=== PATIENT | male | born 1965 | race Caucasian/White ===

== ENCOUNTER 2019-01-01 00:28 | Emergency (ER) | payer OTHER ==
[2019-01-01] MEDS ORDERED: ONDANSETRON HCL IV 4 MG/2 ML VIAL IVP ONE (00:32)
[2019-01-01] MEDS ORDERED: HYDROMORPHONE HCL 2 MG/ML VIAL IVP ONE (00:32)
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
[2019-01-01 00:41] LABS: HEMATOCRIT 42.2 % (42.0-52.0); HEMOGLOBIN 13.5 gm/dl (14.0-18.0); MEAN CELL VOLUME 98.4 fl (81-97); PLATELET COUNT 317 K/uL (130-400); RED BLOOD COUNT 4.29 M/uL (4.40-5.70); RED CELL DISTRIBUTION WIDTH 14.7 % (11.5-14.5)
[2019-01-01 00:43] LABS: MEAN CORPUSCULAR HEMOGLOBIN 31.4 pg (27-33); WHITE BLOOD COUNT W/O DIFF 20.3 K/uL (4.2-12.2)
[2019-01-01] MEDS ORDERED: 0.9 % SODIUM CHLORIDE 1000ML 1,000 ML IV SCH (00:45)
[2019-01-01 00:50] LABS: BLOOD UREA NITROGEN 16 mg/dL (6-20); CREATININE 1.1 mg/dL (0.7-1.2); EST GLOMERULAR FILTRATION RATE > 60 mL/min; TOTAL PROTEIN 5.6 g/dL (6.6-8.7)
[2019-01-01 00:53] LABS: GLUCOSE,RANDOM 210 mg/dL (74-109)
[2019-01-01 00:55] LABS: ALB/GLOB RATIO 2.1 (1.1-1.8); ALBUMIN 3.8 g/dL (4.0-5.0); ALKALINE PHOSPHATASE 57 U/L (40-129); ALT/SGPT 18 U/L (<41); AST/SGOT 15 U/L (10.0-50.0)
[2019-01-01 01:17] LABS: ABO GROUP A; ANTIBODY SCREEN NEGATIVE (NEGATIVE); RH TYPE POSITIVE
[2019-01-01] MEDS ORDERED: Diph,Pert(Acell),Tet Vac 0.5 ML SYR IM ONE (02:40)
[2019-01-01] MEDS ORDERED: CEFTRIAXONE SODIUM 2 GM in 0.9 % SODIUM CHLORIDE 100ML 100 ML IVPB ONE (02:40)
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
== END 2019-01-01 04:35 | disposition short-term general hospital (02) ==
LOC: ER 00:28
DX: S82.131A Displaced fracture of medial condyle of right tibia, initial encounter for closed fracture (principal); S52.125 Nondisplaced fracture of head of left radius; S51.012A Laceration without foreign body of left elbow, initial encounter; S51.011A Laceration without foreign body of right elbow, initial encounter; W20.8XXA Other cause of strike by thrown, projected or falling object, initial encounter
CPT/HCPCS: 99285 ×2; 96372; 96365; 96375; 83605; 85610; 80053; 85027; 86900; 86901; 86850; 73080 ×2; 73552; 73590; 72125; 71250; 70450; 74176; 93005; 93010; G0480; J2405; J1170; 80320; 90715; J7030